=== PATIENT | male | born 1960 ===

== ENCOUNTER 2022-03-13 07:32 | Emergency (ER) | payer OTHER ==
[~2022-03-13 07:32] MED LIST: ATROPINE SULFATE 0.1 MG/ML 10ML SYRINGE ONE; EPINEPHrine 10 ML SYRINGE (0.1 MG/ML) ONE; NOREPINEPHRINE 1 MG/ML 4 ML VIAL IV ONE; SODIUM CHLORIDE 0.9% 250 ML BAG ONE
[2022-03-13 07:49] LABS: Basophils # (A) 0.1 k/uL (0-0.2); Basophils % (A) 1 %; Eosinophils # (A) 0.1 k/uL (0-0.7); Eosinophils % (A) 2 %; HGB 15.4 gm/dL (13.0-17.5); Hypochromasia Slight; Lymphocytes # (A) 6.2 k/uL (1.0-4.8); Lymphocytes % (A) 75 %; MCH 29.3 pg (25.0-35.0); MCHC 31.4 g/dL (31.0-37.0); MCV 93.3 fL (80.0-100.0); Mean Platelet Volume 8.3; Monocytes # (A) 0.3 k/uL (0-1.0); Monocytes % (A) 4 %; Neutrophils # (A) 1.2 k/uL (1.3-7.7); Neutrophils % (A) 14 %; Platelet Count 159 k/uL (150-450); RBC 5.25 m/uL (4.30-5.90); RDW 13.5 % (11.5-15.5); WBC 8.3 k/uL (3.8-10.6)
[2022-03-13 08:00] LABS: Partial Thromboplastin Time 29.4 sec (22.0-30.0)
[2022-03-13 08:02] LABS: Albumin 4.3 g/dL (3.5-5.0); Calcium 8.8 mg/dL (8.4-10.2); Potassium 5.2 mmol/L (3.5-5.1); Total Bilirubin 0.3 mg/dL (0.2-1.3); Total Protein 6.7 g/dL (6.3-8.2)
[2022-03-13 08:26] VITALS: BP 85/51; PULSE 0; RESP 0; TEMP 97.6
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
[2022-03-13 08:43] LABS: Bilirubin,Urine Negative (Negative); Blood,Urine Large (Negative); Color,Urine Light Yellow; Glucose,Urine (UA) Negative (Negative); Ketones,Urine Negative (Negative); Leukocyte Esterase,Urine Negative (Negative); Mucus,Urine Rare /hpf; Nitrite,Urine Negative (Negative); Protein,Urine Trace (Negative); RBC,Urine 13 /hpf (0-5); Specific Gravity,Urine 1.008 (1.001-1.035); Squamous Epithelial Cell,Urine 6 /hpf (0-4); Urobilinogen,Urine <2.0 mg/dL (<2.0); WBC,Urine 7 /hpf (0-5)
[2022-03-13 08:44] LABS: Amphetamine Screen,Urine Not Detected (NotDetected); Barbiturate Screen,Urine Not Detected (NotDetected); Benzodiazepines Screen,Urine Not Detected (NotDetected); Cocaine Screen,Urine Not Detected (NotDetected); Methadone Screen, Urine Not Detected (NotDetected); Opiate Screen,Urine Not Detected (NotDetected); Oxycodone Screen, Urine Not Detected (NotDetected); Phencyclidine Screen,Urine Not Detected (NotDetected); Tricyclic Antidepressant,Urine Not Detected (NotDetected); Urn Cannabinoid Scrn Not Detected (NotDetected)
[2022-03-13 08:47] LABS: Sperm,Urine Many /hpf
[2022-03-13 08:49] LABS: Appearance,Urine Cloudy (Clear)
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
[2022-03-13] MEDS ORDERED: EPINEPHrine 4 MG in DEXTROSE 5% IN WATER 250 ML IV ONE ×2 (09:30)
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
== END 2022-03-13 14:15 | disposition expired ==
LOC: EC 07:32
DX: S27.0XXA Traumatic pneumothorax, initial encounter (principal); T79.7XXA Traumatic subcutaneous emphysema, initial encounter; S72.92XA Unspecified fracture of left femur, initial encounter for closed fracture; S41.112A Laceration without foreign body of left upper arm, initial encounter; S22.20XA Unspecified fracture of sternum, initial encounter for closed fracture; S26.91XA Contusion of heart, unspecified with or without hemopericardium, initial encounter; S27.321A Contusion of lung, unilateral, initial encounter; I46.9 Cardiac arrest, cause unspecified; S09.90XA Unspecified injury of head, initial encounter; F10.129 Alcohol abuse with intoxication, unspecified; V89.2XXA Person injured in unspecified motor-vehicle accident, traffic, initial encounter; Y92.410 Unspecified street and highway as the place of occurrence of the external cause
CPT/HCPCS: 36415; 94002; 93005; 86900; 86901; 80053; 82330; 84484; 85025; 85384; 85610; 85730; 86850; 86920; 81001; 80306; 80320; 72170; 73551; 73590; 71045; 72125; 70450; 71260; 74177; 99291; 99292; 32551; 92950; 96374; P9016; J0690; J0461; J0171; Q9967